=== PATIENT | male | born 1935 | race Two or more races ===

== ENCOUNTER 2017-04-20 10:44 | Emergency (ER) | payer OTHER ==
[2017-04-20 10:44] VITALS: BP 0/0
[2017-04-20] MEDS ORDERED: SODIUM BICARBONATE 8.4% INJ 50ML SYRINGE ONE (10:45)
== END 2017-04-20 14:47 | disposition expired ==
LOC: ER 10:44
DX: I46.9 Cardiac arrest, cause unspecified (principal); I11.0 Hypertensive heart disease with heart failure; I50.9 Heart failure, unspecified; J44.9 Chronic obstructive pulmonary disease, unspecified; E11.9 Type 2 diabetes mellitus without complications; Z85.51 Personal history of malignant neoplasm of bladder; E78.5 Hyperlipidemia, unspecified
CPT/HCPCS: 31500; 92950; 99291